=== PATIENT | male | born 1995 | race Caucasian/White ===

== ENCOUNTER 2018-11-22 22:19 | Emergency (ER) | payer MEDICAID, OTHER ==
[~2018-11-22] VITALS: Ht 188 cm; Wt 216.6 kg
--- OUTSIDE RECORDS SUMMARY | 2018-11-22 22:23 | XMS REPORT | Continuity of Care Document ---
Demographics Preferred Language Unknown Marital Status Unknown Muslim Affiliation Unknown Race Unknown Ethnic Group Unknown Author Organization Unknown Address Unknown Allergies Active Description Code Type Severity Reaction Onset Reported/Identified Relationship to Patient Clinical Status Yes Abilify Drug Allergy 09/22/2011 Medications There is no data. Problems Date Dx Coded Attending Type Code Diagnosis Diagnosed By 08/17/2010 300.00 AN ANXIETY UNSPEC 08/17/2010 311 DEPRESSIVE DISORDER NOS 08/17/2010 300.00 AN ANXIETY UNSPEC 08/17/2010 311 DEPRESSIVE DISORDER NOS 08/17/2010 300.00 AN ANXIETY UNSPEC 08/17/2010 311 DEPRESSIVE DISORDER NOS 10/20/2010 300.02 AN GEN ANXIETY 10/20/2010 300.02 AN GEN ANXIETY 10/20/2010 300.02 AN GEN ANXIETY 12/14/2010 305.20 SA CANNABIS ABUSE 12/14/2010 305.20 SA CANNABIS ABUSE 12/14/2010 305.20 SA CANNABIS ABUSE 09/22/2011 296.90 MOOD DISORDER NOS 09/22/2011 304.80 SA POLYSUB DEP 09/22/2011 313.81 CD OPPOSITIONAL DEFIANT 09/22/2011 V58.69 MEDICATION HIGH RISK 09/22/2011 296.90 MOOD DISORDER NOS 09/22/2011 304.80 SA POLYSUB DEP 09/22/2011 313.81 CD OPPOSITIONAL DEFIANT 09/22/2011 V58.69 MEDICATION HIGH RISK 09/22/2011 296.90 MOOD DISORDER NOS 09/22/2011 304.80 SA POLYSUB DEP 09/22/2011 313.81 CD OPPOSITIONAL DEFIANT 09/22/2011 V58.69 MEDICATION HIGH RISK 09/23/2011 244.9 UNSPECIFIED ACQUIRED HYPOTHYROIDISM 09/23/2011 278.01 OBESITY, MORBID (BMI >40) 09/23/2011 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 09/23/2011 535.50 GASTRITIS UNSPEC 09/23/2011 244.9 UNSPECIFIED ACQUIRED HYPOTHYROIDISM 09/23/2011 278.01 OBESITY, MORBID (BMI >40) 09/23/2011 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 Encounters ACCT No. Visit Date/Time Discharge Status Pt. Type Provider Facility Loc./Unit Complaint [id number] 07/24/2012 16:57:00 07/24/2012 23:59:59 CLS Outpatient [id number] 07/23/2012 15:12:00 07/23/2012 23:59:59 CLS Outpatient [id number] 06/22/2012 15:13:00 06/22/2012 23:59:59 CLS Outpatient
--- NOTE | 2018-11-22 22:43 | NUR ---
DOCTOR ALESSANDRO IN TO SEE THE PATIENT.
[2018-11-22] MEDS ORDERED: ONDANSETRON 4 MG/2 ML (SDV) Z0FRAN IVP ONE (22:45)
[2018-11-22] MEDS ORDERED: KETOROLAC 15 MG/ML VIAL IVP ONE (22:45)
--- NOTE | 2018-11-22 22:47 | ED Abdominal Pain ---
General Chief Complaint: Abdominal/GI Problems Stated Complaint: ABD PAIN, NAUSEA Source of Information: Patient, RN Notes Reviewed Exam Limitations: No Limitations History of Present Illness Date Seen by Provider: Nov 22, 2018 Time Seen by Provider: 22:41 Initial Comments Patient presents c/ c/o worsening lower abdominal pain and nausea x 1 day. States he thinks he is constipated and took something last PM s/ benefit. No known fever. No vomiting. Denies any symptoms Timing/Duration: 1 Day Severity/Quality: Moderate, Aching Location: Generalized Abdomen (lower) Radiation: RLQ Activities at Onset: None Modifying Factors: Improves With Resting Associated Symptoms: No Fever/Chills; Nausea/Vomiting (no vomiting) Allergies and Home Medications Allergies Coded Allergies: No Known Drug Allergies (Unverified , 11/22/18) Patient Home Medication List Home Medication List Reviewed: Yes Review of Systems Review of Systems Constitutional: see HPI; No fever Gastrointestinal: See HPI, Abdominal Pain, Constipated, Nausea Past Cbymfwx-Rtspjj-Zjeqxj Hx Patient Social History Recent Foreign Travel: No Contact w/Someone Who Travel: No Physical Exam Vital Signs Vital Signs - First Documented 11/22/18 11/23/18 22:35 02:13 Temp 97.4 Pulse 90 Resp 18 B/P (MAP) 154/85 (108) Pulse Ox 98 O2 Delivery Room Air Capillary Refill : Height/Weight/BMI Height: '" Weight: lbs. oz. kg; BMI Method: General Appearance: WD/WN, no apparent distress, obese Respiratory: no respiratory distress Cardiovascular: regular rate, rhythm Gastrointestinal: soft; No guarding, No rebound; tenderness (primarily RLQ) Rectal: deferred Neurologic/Psychiatric: no motor/sensory deficits, alert, oriented x 3, depressed affect Skin: warm/dry Progress/Results/Core Measures Results/Orders Lab Results Laboratory Tests Test 11/22/18 00:05 11/22/18 23:45 Range/Units Urine Color YELLOW Urine Clarity CLEAR Urine pH 6.0 5-9 Urine Specific [place] >=1.030 1.016-1.022 Urine Protein 1+ H NEGATIVE Urine Glucose (UA) TRACE H NEGATIVE Urine Ketones NEGATIVE NEGATIVE Urine Nitrite NEGATIVE NEGATIVE Urine Bilirubin NEGATIVE NEGATIVE Urine Urobilinogen 0.2 NORMAL MG/DL Urine Leukocyte Esterase NEGATIVE NEGATIVE Urine RBC (Auto) NEGATIVE NEGATIVE Urine RBC NONE /HPF Urine WBC 2-5 /HPF Urine Squamous Epithelial Cells 2-5 /HPF Urine Crystals NONE /LPF Urine Amorphous Sediment MOD RONALD URATES H /LPF Urine Bacteria NEGATIVE /HPF Urine Casts NONE /LPF Urine Mucus LARGE H /LPF Urine Culture Indicated NO White Blood Count 15.1 H 4.3-11.0 10^3/uL Red Blood Count 4.78 4.35-5.85 10^6/uL Hemoglobin 13.1 L 13.3-17.7 G/DL Hematocrit 41 40-54 % Mean Corpuscular Volume 86 80-99 FL Mean Corpuscular Hemoglobin 27 25-34 PG Mean Corpuscular Hemoglobin Concent 32 32-36 G/DL Red Cell Distribution Width 14.2 10.0-14.5 % Platelet Count 294 130-400 10^3/uL Mean Platelet Volume 11.7 H 7.4-10.4 FL Neutrophils (%) (Auto) 73 42-75 % Lymphocytes (%) (Auto) 15 12-44 % Monocytes (%) (Auto) 10 0-12 % Eosinophils (%) (Auto) 1 0-10 % Basophils (%) (Auto) 1 0-10 % Neutrophils # (Auto) 11.1 H 1.8-7.8 X 10^3 Lymphocytes # (Auto) 2.2 1.0-4.0 X 10^3 Monocytes # (Auto) 1.5 H 0.0-1.0 X 10^3 Eosinophils # (Auto) 0.2 0.0-0.3 10^3/uL Basophils # (Auto) 0.1 0.0-0.1 10^3/uL Sodium Level 145 135-145 MMOL/L Potassium Level 3.8 3.6-5.0 MMOL/L Chloride Level 109 H 98-107 MMOL/L Carbon Dioxide Level 19 L 21-32 MMOL/L Anion Gap 17 H 5-14 MMOL/L Blood Urea Nitrogen 6 L 7-18 MG/DL Creatinine 0.71 0.60-1.30 MG/DL Estimat Glomerular Filtration Rate > 60 BUN/Creatinine Ratio 8 Glucose Level 115 H 70-105 MG/DL Calcium Level 9.5 8.5-10.1 MG/DL Corrected Calcium 9.4 8.5-10.1 MG/DL Total Bilirubin 0.4 0.1-1.0 MG/DL Aspartate Amino Transf (AST/SGOT) 21 5-34 U/L Alanine Aminotransferase (ALT/SGPT) 37 0-55 U/L Alkaline Phosphatase 111 40-136 U/L Total Protein 7.3 6.4-8.2 GM/DL Albumin 4.1 3.2-4.5 GM/DL My Orders Orders - JUAN CARLOS FRANCOIS DO Cbc With Automated Diff (11/22/18 22:44) Comprehensive Metabolic Panel (11/22/18 22:44) Ed Iv/Invasive Line Start (11/22/18 22:44) Ketorolac Injection (Toradol Injection) (11/22/18 22:45) Ondansetron Injection (Zofran Injectio (11/22/18 22:45) Ua Culture If Indicated (11/22/18 22:49) Ketorolac Injection (Toradol Injection) (11/22/18 23:11) Ceftriaxone For Im Use (Rocephin For Im (11/23/18 00:35) Ns Iv 1000 Ml (Sodium Chloride 0.9%) (11/23/18 00:45) Abdomen Flat & Upright/Decub (11/23/18 00:42) Ceftriaxone For Iv Use (Rocephin For I (11/23/18 01:00) Dexamethasone Injection (Decadron Inject (11/23/18 01:00) Azithromycin Tablet (Zithromax Tablet) (11/23/18 01:00) Fentanyl Injection (Sublimaze Injection (11/23/18 01:00) Magnesium Citrate Oral Soln (Citrate Of (11/23/18 02:00) Medications Given in ED Current Medications Medications Dose Ordered Sig/Tyler Route Start Time Stop Time Status Last Admin Dose Admin Azithromycin 1,000 mg ONCE ONCE PO 11/23/18 01:00 11/23/18 01:01 DC 11/23/18 01:19 1,000 MG Ceftriaxone Sodium 250 mg STK-MED ONCE .ROUTE 11/23/18 00:35 11/23/18 00:39 DC 11/23/18 00:53 250 MG Dexamethasone Sodium Phosphate 10 mg ONCE ONCE IV 11/23/18 01:00 11/23/18 01:01 DC 11/23/18 01:19 10 MG Fentanyl Citrate 50 mcg ONCE ONCE IVP 11/23/18 01:00 11/23/18 01:01 DC 11/23/18 01:19 50 MCG Ketorolac Tromethamine 15 mg ONCE ONCE IVP 11/22/18 22:45 11/22/18 22:47 DC 11/22/18 23:20 15 MG Magnesium Citrate 300 ml ONCE ONCE PO 11/23/18 02:00 11/23/18 02:01 DC 11/23/18 02:10 300 ML Ondansetron HCl 4 mg ONCE ONCE IVP 11/22/18 22:45 11/22/18 22:47 DC 11/22/18 23:21 4 MG Sodium Chloride 1,000 ml ONCE ONCE IV 11/23/18 00:45 11/23/18 00:46 DC 11/23/18 00:54 1,000 ML Vital Signs/I&O 11/22/18 11/23/18 22:35 02:13 Temp 97.4 97.4 Pulse 90 90 Resp 18 18 B/P (MAP) 154/85 (108) 154/85 (108) Pulse Ox 98 O2 Delivery Room Air Progress Progress Note : Progress Note Attempted to obtain a CT of the patient's abdomen/pelvis but he is too heavy for our CT table. Checked c/ [facility] in [place] and their table weight limit is even less than ours. Discussed options of transferring him to either [place], or and we decided to take a weight and see position. He still feels if he can get cleaned out he will be good to go. Will send him home some Mag citrate. Discussed returning if his symptoms worsened. Departure Impression Primary Impression: Abdominal pain Additional Impressions: Dehydration Ileus/constipation Disposition: 01 HOME, SELF-CARE Condition: Improved Departure-Patient Inst. Decision time for Depature: 02:01 Referrals: AMBROSE TORREZ MD (PCP) Primary Care Physician Patient Instructions: Dehydration, Adult (DC), Constipation, Adult (DC), Acute Abdomen (Belly Pain) Add. Discharge Instructions: All discharge instructions reviewed with patient and/or family. Voiced understanding. RETURN IF YOUR PAIN RECURS, &/OR WORSENS, ESPECIALLY IF ASSOCIATED WITH FEVER &/OR NAUSEA AND VOMITING. WILL MOST LIKELY NEED TO TRANSFER YOU TO EITHER [place], OR IF THAT IS THE CASE IN [place] OF THE [place] SCAN ISSUES. NEED TO PUSH CLEAR LIQUIDS AND STAY HYDRATED. JUAN CARLOS FRANCOIS DO Nov 22, 2018 22:47
[2018-11-22] MEDS ORDERED: KETOROLAC 30 MG/ML VIAL ONE (23:11)
[2018-11-22 23:52] LABS: BASOPHILS % (AUTO) 1 % (0-10); EOSINOPHILS % (AUTO) 1 % (0-10); HEMATOCRIT 41 % (40-54); HEMOGLOBIN 13.1 G/DL (13.3-17.7); LYMPHOCYTES % (AUTO) 15 % (12-44); MEAN CORPUSCULAR HEMOGLOBIN 27 PG (25-34); MEAN CORPUSCULAR HGB CONC 32 G/DL (32-36); MEAN CORPUSCULAR VOLUME 86 FL (80-99); MEAN PLATELET VOLUME 11.7 FL (7.4-10.4); MONOCYTES % (AUTO) 10 % (0-12); PLATELET COUNT 294 10^3/uL (130-400); RED CELL DISTRIBUTION WIDTH 14.2 % (10.0-14.5); WHITE BLOOD COUNT 15.1 10^3/uL (4.3-11.0)
--- NOTE | 2018-11-22 23:52 | NUR ---
PT. UP TO THE BATHROOM AT THIS TIME.
[2018-11-22 23:53] LABS: BASOPHILS # (AUTO) 0.1 10^3/uL (0.0-0.1); EOSINOPHILS # (AUTO) 0.2 10^3/uL (0.0-0.3); LYMPHOCYTES # (AUTO) 2.2 X 10^3 (1.0-4.0); MONOCYTES # (AUTO) 1.5 X 10^3 (0.0-1.0); NEUTROPHILS # (AUTO) 11.1 X 10^3 (1.8-7.8); NEUTROPHILS % (AUTO) 73 % (42-75)
--- NOTE | 2018-11-22 23:56 | NUR ---
PT. STATED HE HAD A BM
[2018-11-23 00:15] LABS: ALANINE AMINOTRANSFERASE 37 U/L (0-55); ALKALINE PHOSPHATASE 111 U/L (40-136); BILIRUBIN,TOTAL 0.4 MG/DL (0.1-1.0); BUN/CREATININE RATIO 8; CALCIUM 9.5 MG/DL (8.5-10.1); CARBON DIOXIDE 19 MMOL/L (21-32); CHLORIDE 109 MMOL/L (98-107); CREATININE SERUM 0.71 MG/DL (0.60-1.30); GFR ESTIMATED > 60; GLUCOSE 115 MG/DL (70-105); POTASSIUM 3.8 MMOL/L (3.6-5.0); SODIUM 145 MMOL/L (135-145); TOTAL PROTEIN 7.3 GM/DL (6.4-8.2)
[2018-11-23 00:16] LABS: ALBUMIN 4.1 GM/DL (3.2-4.5)
[2018-11-23 00:16] LABS: CLARITY,URINE CLEAR; COLOR,URINE YELLOW; PROTEIN,URINE 1+ (NEGATIVE)
[2018-11-23 00:17] LABS: BACTERIA,URINE NEGATIVE /HPF; BILIRUBIN,URINE NEGATIVE (NEGATIVE); GLUCOSE, URINE (UA) TRACE (NEGATIVE); KETONES,URINE NEGATIVE (NEGATIVE); LEUKOCYTE ESTERASE ,URINE NEGATIVE (NEGATIVE); NITRITE,URINE NEGATIVE (NEGATIVE); UROBILINOGEN,URINE 0.2 MG/DL (NORMAL)
[2018-11-23 00:18] LABS: AMORPHOUS SEDIMENT,UR MOD AMOR URATES /LPF
[2018-11-23] MEDS ORDERED: cefTRIAXone FOR IV USE 250 MG in SYRINGE-IVPB 1 SYRINGE IV STA (00:24)
--- NOTE | 2018-11-23 00:27 | NUR ---
DOCTOR IN WITH THE PATIENT.
[2018-11-23] MEDS ORDERED: fentaNYL INJECTION 100 MCG/2 ML AMP IVP ONE ×2 (00:30→01:00)
[2018-11-23] MEDS ORDERED: DEXAMETHASONE 10 MG/ML (DECADRON) 1 ML VIAL IV ONE ×2 (00:30→01:00)
[2018-11-23] MEDS ORDERED: AZITHROMYCIN 250 MG TAB (ZITHROMAX) PO ONE ×2 (00:30→01:00)
[2018-11-23] MEDS ORDERED: cefTRIAXone 250 MG/ML vial (IM ONLY) ONE (00:35)
[2018-11-23] MEDS ORDERED: NS 1000 ML IV BAG IV ONE (00:45)
[2018-11-23] MEDS ORDERED: cefTRIAXone FOR IV USE 250 MG in SYRINGE-IVPB 1 SYRINGE IV SCH (01:00)
[2018-11-23] MEDS ORDERED: MAGNESIUM CITRATE 300 ML BTL PO ONE (02:00)
[2018-11-23 02:13] VITALS: BP 154/85
--- NOTE | 2018-11-23 06:51 | Diagnostic Imaging Report ---
INDICATION: Abdominal pain with nausea. Constipation. TECHNIQUE: Supine and upright frontal views of the abdomen. COMPARISON: None FINDINGS: There is gas seen in the colon and small bowel. No distended loops of small bowel are seen. The overall stool burden appears low. No acute osseous abnormality is seen. IMPRESSION: No radiographic findings of bowel obstruction or large collection of free air. Dictated by: Dictated on workstation # [id number]
== END 2018-11-23 02:14 | disposition home or self-care (01) ==
LOC: ER FS 22:19
DX: K59.00 Constipation, unspecified (principal); K56.7 Ileus, unspecified; E86.0 Dehydration
CPT/HCPCS: 36415; 74019; 80053; 81000; 85025

== ENCOUNTER 2020-05-17 23:33 | Emergency (ER) | payer MEDICAID ==
[~2020-05-17] VITALS: Ht 188 cm; Wt 91.3 kg
[2020-05-17] MEDS ORDERED: NS IV 1000 ML 1,000 ML IV STA (23:43)
[2020-05-17] MEDS ORDERED: KETOROLAC 60 MG/2 ML VIAL IV ONE (23:45)
[2020-05-17] MEDS ORDERED: ONDANSETRON 4 MG/2 ML (SDV) Z0FRAN IVP ONE (23:45)
--- NOTE | 2020-05-17 23:46 | ED Abdominal Pain ---
General Chief Complaint: Abdominal/GI Problems Stated Complaint: ABD PAIN Source of Information: Patient, Old Records, RN Notes Reviewed Exam Limitations: No Limitations History of Present Illness Date Seen by Provider: May 17, 2020 Time Seen by Provider: 23:40 Initial Comments This patient is a 24-year-old male that presents to the emergency department complaining of abdominal pain. Patient states he had gastric bypass surgery 1 year ago said issues with his abdomen from time to time. Patient states she's been hurt in his abdomen for the past couple days. Patient states he did have a bowel movement earlier today. Denies nausea vomiting denies diarrhea. Patient states he is still passing little bit of gas. We'll do medical evaluation treatment is needed Timing/Duration: 2-3 Days Severity/Quality: Moderate Location: Generalized Abdomen Radiation: No Radiation Activities at Onset: None Allergies and Home Medications Allergies Coded Allergies: aripiprazole (Verified Allergy, Unknown, 03/29/20) Patient Home Medication List Home Medication List Reviewed: Yes Review of Systems Review of Systems Constitutional: No no symptoms reported, No see HPI, No chills, No diaphoresis, No dizziness, No fever, No malaise, No weakness, No weight gain, No weight loss, No other EENTM: No No Symptoms Reported, No See HPI, No Blurred Vision, No Double Visi on, No Eye Pain, No Eye Tearing, No Ear Drainage, No Ear Pain, No Mouth Pain, No Mouth Swelling, No Nose Congestion, No Nose Pain, No Throat Pain, No Throat Swelling, No Other Respiratory: Denies No Symptoms Reported, Denies See HPI, Denies Cough, Denies Orthopnea, Denies Shortness of Air, Denies SOA With Exertion, Denies SOA at Rest, Denies Stridor, Denies Wheezing, Denies Other Cardiovascular: Denies No Symptoms Reported, Denies See HPI, Denies Chest Pain, Denies Edema, Denies Irregular Heart Rate, Denies Lightheadedness, Denies Palpitations, Denies Syncope, Denies Other Gastrointestinal: Denies No Symptoms Reported; See HPI; Denies Abdomen Distended; Abdominal Pain; Denies Blood Streaked Stools, Denies Constipated, Denies Diarrhea, Denies Difficulty Swallowing, Denies Nausea, Denies Poor Appetite, Denies Poor Fluid Intake, Denies Rectal Bleeding, Denies Vomiting, Denies Other Genitourinary: Denies No Symptoms Reported, Denies See HPI, Denies Burning, Denies Discharge, Denies Drainage, Denies Frequency, Denies Flank Pain, Denies Hematuria, Denies Incontinence, Denies Pain, Denies Urgency, Denies Other Musculoskeletal: No no symptoms reported, No see HPI, No back pain, No gout, No joint pain, No joint swelling, No muscle pain, No muscle stiffness, No muscle cramps, No muscle twitching, No muscle weakness, No neck pain, No other Skin: No no symptoms reported, No see HPI, No change in color, No change in hair/nails, No dryness, No hx of skin cancer, No lesions, No lumps, No pruritus, No rash, No other Psychiatric/Neurological: Denies No Symptoms Reported, Denies See HPI, Denies Anxiety, Denies Depressed, Denies Emotional Problems, Denies Headache, Denies Numbness, Denies Paresthesia, Denies Pre-Existing Deficit, Denies Seizure, Denies Tingling, Denies Tremors, Denies Weakness, Denies Other All Other Systems Reviewed Negative Unless Noted: Yes Past Gftonsj-Szbtyz-Skhtto Hx Patient Social History Recent Foreign Travel: No Contact w/Someone Who Travel: No Recent Hopitalizations: No Past Medical History Surgeries: Yes (gastric bypass) Respiratory: No Cardiac: No Neurological: No Genitourinary: No Gastrointestinal: No Musculoskeletal: No Endocrine: No HEENT: No Cancer: No Psychosocial: Yes Anxiety, Depression Integumentary: No Blood Disorders: No Physical Exam Vital Signs Vital Signs - First Documented 05/17/20 23:46 Temp 36.5 Pulse 100 Resp 24 B/P (MAP) 123/86 (98) Pulse Ox 100 O2 Delivery Room Air Capillary Refill : Height/Weight/BMI Height: 6'2.00" Weight: 477lbs. 8.0oz. 216.878138qa; 28.00 BMI Method:Actual General Appearance: WD/WN, no apparent distress Respiratory: chest non-tender, lungs clear, normal breath sounds, no respiratory distress, no accessory muscle use Cardiovascular: normal peripheral pulses, regular rate, rhythm, no edema, no gallop, no JVD, no murmur Gastrointestinal: normal bowel sounds, non tender, soft, no organomegaly, no pulsatile mass Skin: normal color, warm/dry Procedures/Interventions Suture Size: 4-0 Progress/Results/Core Measures Results/Orders Lab Results Laboratory Tests Test 05/18/20 00:05 Range/Units White Blood Count 12.7 H 4.3-11.0 10^3/uL Red Blood Count 4.99 4.35-5.85 10^6/uL Hemoglobin 15.1 13.3-17.7 G/DL Hematocrit 43 40-54 % Mean Corpuscular Volume 86 80-99 FL Mean Corpuscular Hemoglobin 30 25-34 PG Mean Corpuscular Hemoglobin Concent 35 32-36 G/DL Red Cell Distribution Width 13.8 10.0-14.5 % Platelet Count 292 130-400 10^3/uL Mean Platelet Volume 12.0 H 7.4-10.4 FL Immature Granulocyte % (Auto) 0 % Neutrophils (%) (Auto) 60 42-75 % Lymphocytes (%) (Auto) 28 12-44 % Monocytes (%) (Auto) 11 0-12 % Eosinophils (%) (Auto) 1 0-10 % Basophils (%) (Auto) 0 0-10 % Neutrophils # (Auto) 7.6 1.8-7.8 X 10^3 Lymphocytes # (Auto) 3.6 1.0-4.0 X 10^3 Monocytes # (Auto) 1.3 H 0.0-1.0 X 10^3 Eosinophils # (Auto) 0.2 0.0-0.3 10^3/uL Basophils # (Auto) 0.1 0.0-0.1 10^3/uL Immature Granulocyte # (Auto) 0.0 0.0-0.1 10^3/uL Sodium Level 143 135-145 MMOL/L Potassium Level 3.4 L 3.6-5.0 MMOL/L Chloride Level 104 98-107 MMOL/L Carbon Dioxide Level 20 L 21-32 MMOL/L Anion Gap 19 H 5-14 MMOL/L Blood Urea Nitrogen 20 H 7-18 MG/DL Creatinine 0.77 0.60-1.30 MG/DL Estimat Glomerular Filtration Rate > 60 BUN/Creatinine Ratio 26 Glucose Level 67 L 70-105 MG/DL Calcium Level 10.0 8.5-10.1 MG/DL Corrected Calcium 8.5-10.1 MG/DL Total Bilirubin 1.2 H 0.1-1.0 MG/DL Aspartate Amino Transf (AST/SGOT) 16 5-34 U/L Alanine Aminotransferase (ALT/SGPT) 23 0-55 U/L Alkaline Phosphatase 127 40-136 U/L Total Protein 7.5 6.4-8.2 GM/DL Albumin 4.7 H 3.2-4.5 GM/DL Lipase 29 8-78 U/L Serum Alcohol < 10 <10 MG/DL My Orders Orders - EMANUEL FLYNN MD Ct Abd/Pelvis Wo(Kidney Stone) (05/17/20 23:43) Ed Iv/Invasive Line Start (05/17/20 23:43) Alcohol (05/17/20 23:43) Cbc With Automated Diff (05/17/20 23:43) Comprehensive Metabolic Panel (05/17/20 23:43) Drug Screen Stat (Urine) (05/17/20 23:43) Urinalysis (05/17/20 23:43) Lipase (05/17/20 23:43) Ns Iv 1000 Ml (Sodium Chloride 0.9%) (05/17/20 23:43) Ketorolac Injection (Toradol Injection) (05/17/20 23:45) Ondansetron Injection (Zofran Injectio (05/17/20 23:45) Lactic Acid Analyzer (05/18/20 01:30) Medications Given in ED Current Medications Medications Dose Ordered Sig/Tyler Route Start Time Stop Time Status Last Admin Dose Admin Ketorolac Tromethamine 15 mg ONCE ONCE IV 05/17/20 23:45 05/17/20 23:46 DC 05/18/20 00:00 15 MG Ondansetron HCl 4 mg ONCE ONCE IVP 05/17/20 23:45 05/17/20 23:46 DC 05/18/20 00:00 4 MG Vital Signs/I&O 05/17/20 23:46 Temp 36.5 Pulse 100 Resp 24 B/P (MAP) 123/86 (98) Pulse Ox 100 O2 Delivery Room Air Progress Progress Note : Time: 01:32 Progress Note This patient is a 24-year-old male presented with a small bowel obstruction with an nurse obgyn hernia. History of gastric bypass. Patient be transferred to [facility]. Dr. Willingham Departure Impression Primary Impression: Small bowel obstruction Additional Impression: Intestinal hernia Disposition: 02 XFER SHT-TRM HOSP Condition: Stable Transfer Transfer Reason: Patient preference Time Spoke to Accepting Phy: 01:[address] Willingham transferred into the ER Transfer Time: 01:33 Transfer Facility: [facility]. Method of Transfer: EMS Departure-Patient Inst. Referrals: AMBROSE TORREZ MD (PCP/Family) Primary Care Physician EMANUEL FLYNN MD May 17, 2020 23:46
[2020-05-18 00:08] LABS: HEMATOCRIT 43 % (40-54); HEMOGLOBIN 15.1 G/DL (13.3-17.7); MEAN CORPUSCULAR HEMOGLOBIN 30 PG (25-34); MEAN CORPUSCULAR HGB CONC 35 G/DL (32-36); MEAN CORPUSCULAR VOLUME 86 FL (80-99); PLATELET COUNT 292 10^3/uL (130-400); WHITE BLOOD COUNT 12.7 10^3/uL (4.3-11.0)
[2020-05-18 00:09] LABS: BASOPHILS # (AUTO) 0.1 10^3/uL (0.0-0.1); BASOPHILS % (AUTO) 0 % (0-10); EOSINOPHILS # (AUTO) 0.2 10^3/uL (0.0-0.3); EOSINOPHILS % (AUTO) 1 % (0-10); LYMPHOCYTES # (AUTO) 3.6 X 10^3 (1.0-4.0); LYMPHOCYTES % (AUTO) 28 % (12-44); MONOCYTES # (AUTO) 1.3 X 10^3 (0.0-1.0); MONOCYTES % (AUTO) 11 % (0-12); NEUTROPHILS # (AUTO) 7.6 X 10^3 (1.8-7.8); NEUTROPHILS % (AUTO) 60 % (42-75)
[2020-05-18 00:27] LABS: ALKALINE PHOSPHATASE 127 U/L (40-136); BILIRUBIN,TOTAL 1.2 MG/DL (0.1-1.0); BUN/CREATININE RATIO 26; CARBON DIOXIDE 20 MMOL/L (21-32); CHLORIDE 104 MMOL/L (98-107); CREATININE SERUM 0.77 MG/DL (0.60-1.30); GFR ESTIMATED > 60; GLUCOSE 67 MG/DL (70-105); POTASSIUM 3.4 MMOL/L (3.6-5.0); SODIUM 143 MMOL/L (135-145)
[2020-05-18 00:28] LABS: ALANINE AMINOTRANSFERASE 23 U/L (0-55); ALBUMIN 4.7 GM/DL (3.2-4.5); LIPASE 29 U/L (8-78); TOTAL PROTEIN 7.5 GM/DL (6.4-8.2)
[2020-05-18 02:00] VITALS: BP 121/68
[2020-05-18 04:00] VITALS: BP 115/62
[2020-05-18 05:00] VITALS: BP 96/74
[2020-05-18 07:52] VITALS: BP 123/75
--- NOTE | 2020-05-18 08:12 | Diagnostic Imaging Report ---
PROCEDURE: CT urinary tract, rule out kidney stone. TECHNIQUE: Multiple contiguous axial images were obtained through the abdomen and pelvis without the use of intravenous contrast. Auto Exposure Controls were utilized during the CT exam to meet ALARA standards for radiation dose reduction. INDICATION: Abdominal pain. The lung bases are clear. The liver and gallbladder are unremarkable. No biliary duct dilatation is seen. Pancreas and spleen are unremarkable. No adrenal mass is detected. There is a 6 to 7 mm calculus in the right mid kidney, nonobstructing. No hydronephrosis is identified. Aorta is non-aneurysmal. There are postsurgical changes from gastric bypass surgery. There are some distended bowel loops which appear to be fluid-filled in the upper abdomen. There is a somewhat swirling pattern to upper and mid abdominal vasculature and bowel loops. These findings can be seen in closed loop obstructions such as internal hernias. No free fluid or free air is seen. No fluid collection is identified. Bladder is decompressed. Bony structures are nonacute. IMPRESSION: 1. 6 to 7 mm nonobstructing right renal calculus. 2. Postop changes of gastric bypass surgery. There are some distended fluid-filled bowel loops in the upper abdomen with somewhat swirling pattern in the upper abdomen, suspicious for closed loop obstruction. No free air or abscess formation is identified. Dictated by: Dictated on workstation # [id number]
== END 2020-05-18 07:56 | disposition short-term general hospital (02) ==
LOC: EDUNIT# 23:33 → ER FS 23:34
DX: K56.609 Unspecified intestinal obstruction, unspecified as to partial versus complete obstruction (principal); K45.8 Other specified abdominal hernia without obstruction or gangrene; Z88.8 Allergy status to other drugs, medicaments and biological substances
CPT/HCPCS: 36415; 74176; 80053; 80320; 83605; 83690; 85025

== ENCOUNTER 2020-06-23 22:57 | Emergency (ER) | payer MEDICAID ==
[~2020-06-23] VITALS: Ht 187.9 cm; Wt 92.9 kg
--- NOTE | 2020-06-23 23:10 | ED Psychosocial ---
General Stated Complaint: SUICIDAL IDEATION Source: patient Exam Limitations: no limitations History of Present Illness Date Seen by Provider: Jun 23, 2020 Time Seen by Provider: 23:58 Initial Comments The patient is a 24-year-old male brought in by police for evaluation of depression and suicidal ideation. Apparently the patient was in an argument with someone and barricaded himself in his house and was threatening to kill himself. He has some superficial abrasions which were self-inflicted to the left volar wrist. They're superficial and there is no bleeding upon arrival. The patient is alert and oriented 4, calm, and appears to be no distress. He is unsure if the date of his last tetanus shot so will be given to him today. He is denying any suicidal ideation at this time. Timing/Duration: just prior to arrival Severity: moderate Associated Symptoms: denies symptoms Allergies and Home Medications Allergies Coded Allergies: aripiprazole (Verified Allergy, Unknown, 03/29/20) Patient Home Medication List Home Medication List Reviewed: Yes Review of Systems Constitutional: no symptoms reported EENTM: no symptoms reported Respiratory: no symptoms reported Cardiovascular: no symptoms reported Gastrointestinal: no symptoms reported Genitourinary: no symptoms reported Musculoskeletal: no symptoms reported Skin: no symptoms reported Psychiatric/Neurological: Depressed, Other (suicidal ideation) All Other Systems Reviewed Negative Unless Noted: Yes Past Tquqect-Pcdmky-Hjbwgb Hx Past Med/Social Hx: Reviewed Nursing Past Med/Soc Hx Patient Social History Recent Hopitalizations: No Seasonal Allergies Seasonal Allergies: No Past Medical History Surgeries: Yes (gastric bypass) Respiratory: No Cardiac: No Neurological: No Genitourinary: No Gastrointestinal: No Musculoskeletal: No Endocrine: No HEENT: No Cancer: No Psychosocial: Yes Anxiety, Depression Integumentary: No Blood Disorders: No Physical Exam Vital Signs - First Documented 06/23/20 22:58 Temp 36.7 Pulse 99 Resp 20 B/P (MAP) 157/94 (115) Pulse Ox 95 O2 Delivery Room Air Capillary Refill : Height, Weight, BMI Height: 6'2.00" Weight: 477lbs. 8.0oz. [id number]; 25.00 BMI Method:Actual General Appearance: WD/WN, no apparent distress HEENT: PERRL/EOMI, normal ENT inspection Neck: non-tender, full range of motion, supple Respiratory: lungs clear, normal breath sounds, no respiratory distress, no accessory muscle use Cardiovascular: regular rate, rhythm, no edema, no JVD Gastrointestinal: normal bowel sounds, non tender, soft, no pulsatile mass Extremities: non-tender, no pedal edema, no calf tenderness, normal capillary refill, other (superficial abrasions to left wrist, minor hematoma/ecchymosis, no bleeding) Neurologic/Psychiatric: butt trimmer II-XII nml as tested, no motor/sensory deficits, alert, oriented x 3, depressed affect, other (flat affect) Appearance/Memory: appropriate appearance, appropriate insight Behavior/Eye Contact: cooperative, good eye contact, normal speech Thoughts/Hallucinations: normal thought pattern, no apparent hallucination Skin: normal color, warm/dry Procedures/Interventions Suture Size: 4-0 Progress/Results/Core Measures Results/Orders Lab Results Laboratory Tests Test 06/23/20 23:05 06/23/20 23:14 Range/Units Urine Color YELLOW Urine Clarity CLOUDY Urine pH 8.0 5-9 Urine Specific [place] 1.020 1.016-1.022 Urine Protein NEGATIVE NEGATIVE Urine Glucose (UA) NEGATIVE NEGATIVE Urine Ketones NEGATIVE NEGATIVE Urine Nitrite NEGATIVE NEGATIVE Urine Bilirubin NEGATIVE NEGATIVE Urine Urobilinogen 0.2 < = 1.0 MG/DL Urine Leukocyte Esterase NEGATIVE NEGATIVE Urine RBC (Auto) NEGATIVE NEGATIVE Urine RBC NONE /HPF Urine WBC NONE /HPF Urine Squamous Epithelial Cells 0-2 /HPF Urine Crystals NONE /LPF Urine Amorphous Sediment MOD RONALD PHOSPHATE H /LPF Urine Bacteria TRACE /HPF Urine Casts NONE /LPF Urine Mucus NEGATIVE /LPF Urine Culture Indicated NO Urine Opiates Screen NEGATIVE NEGATIVE Urine Oxycodone Screen NEGATIVE NEGATIVE Urine Methadone Screen NEGATIVE NEGATIVE Urine Propoxyphene Screen NEGATIVE NEGATIVE Urine Barbiturates Screen NEGATIVE NEGATIVE Ur Tricyclic Antidepressants Screen NEGATIVE NEGATIVE Urine Phencyclidine Screen NEGATIVE NEGATIVE Urine Amphetamines Screen POSITIVE H NEGATIVE Urine Methamphetamines Screen POSITIVE H NEGATIVE Urine Benzodiazepines Screen NEGATIVE NEGATIVE Urine Cocaine Screen NEGATIVE NEGATIVE Urine Cannabinoids Screen NEGATIVE NEGATIVE White Blood Count 7.8 4.3-11.0 10^3/uL Red Blood Count 4.39 4.35-5.85 10^6/uL Hemoglobin 13.3 13.3-17.7 G/DL Hematocrit 40 40-54 % Mean Corpuscular Volume 90 80-99 FL Mean Corpuscular Hemoglobin 30 25-34 PG Mean Corpuscular Hemoglobin Concent 34 32-36 G/DL Red Cell Distribution Width 12.7 10.0-14.5 % Platelet Count 213 130-400 10^3/uL Mean Platelet Volume 11.6 H 7.4-10.4 FL Immature Granulocyte % (Auto) 0 % Neutrophils (%) (Auto) 57 42-75 % Lymphocytes (%) (Auto) 32 12-44 % Monocytes (%) (Auto) 7 0-12 % Eosinophils (%) (Auto) 3 0-10 % Basophils (%) (Auto) 1 0-10 % Neutrophils # (Auto) 4.4 1.8-7.8 X 10^3 Lymphocytes # (Auto) 2.5 1.0-4.0 X 10^3 Monocytes # (Auto) 0.6 0.0-1.0 X 10^3 Eosinophils # (Auto) 0.3 0.0-0.3 10^3/uL Basophils # (Auto) 0.0 0.0-0.1 10^3/uL Immature Granulocyte # (Auto) 0.0 0.0-0.1 10^3/uL Sodium Level 141 135-145 MMOL/L Potassium Level 3.9 3.6-5.0 MMOL/L Chloride Level 107 98-107 MMOL/L Carbon Dioxide Level 24 21-32 MMOL/L Anion Gap 10 5-14 MMOL/L Blood Urea Nitrogen 13 7-18 MG/DL Creatinine 0.73 0.60-1.30 MG/DL Estimat Glomerular Filtration Rate > 60 BUN/Creatinine Ratio 18 Glucose Level 83 70-105 MG/DL Calcium Level 9.4 8.5-10.1 MG/DL Corrected Calcium 9.2 8.5-10.1 MG/DL Total Bilirubin 0.8 0.1-1.0 MG/DL Aspartate Amino Transf (AST/SGOT) 19 5-34 U/L Alanine Aminotransferase (ALT/SGPT) 26 0-55 U/L Alkaline Phosphatase 115 40-136 U/L Total Protein 6.6 6.4-8.2 GM/DL Albumin 4.2 3.2-4.5 GM/DL Salicylates Level < 0.3 L 5.0-20.0 MG/DL Acetaminophen Level < 10 L 10-30 UG/ML Serum Alcohol < 10 <10 MG/DL My Orders Orders - APPLE,SRUTHI B DO Ua Culture If Indicated (06/23/20 23:04) Cbc With Automated Diff (06/23/20 23:04) Comprehensive Metabolic Panel (06/23/20 23:04) Alcohol (06/23/20 23:04) Drug Screen Stat (Urine) (06/23/20 23:04) Acetaminophen (06/23/20 23:04) Salicylate (06/23/20 23:04) Ekg Tracing (06/23/20 23:04) Bh Status Checks/Observation Q15M (06/23/20 23:04) Dipht,Pertuss(Acell),Tet Adult (Boostrix (06/23/20 23:15) Medications Given in ED Current Medications Medications Dose Ordered Sig/Tyler Route Start Time Stop Time Status Last Admin Dose Admin Diphtheria/ Tetanus/Acell Pertussis 0.5 ml ONCE ONCE IM 06/23/20 23:15 06/23/20 23:17 DC 06/24/20 00:02 0.5 ML Vital Signs/I&O 06/23/20 22:58 Temp 36.7 Pulse 99 Resp 20 B/P (MAP) 157/94 (115) Pulse Ox 95 O2 Delivery Room Air Progress Progress Note : Progress Note @0300 - the patient was evaluated by the mental health product manager e commerce who has determined that the patient is safe for discharge home at this time. He has sign ed a mental health/suicide action plan. The patient agrees with the plan to go home. Advised the patient to return to the emergency Department immediately for new or worsening symptoms. The patient expresses verbal understanding and agreement the plan and is stable for discharge. Comment @2319 - Normal sinus rhythm, rate of 83, normal axis, no acute ischemic findings noted, no STEMI, reviewed and interpreted by myself Departure Impression Primary Impression: Methamphetamine abuse Additional Impression: Non-suicidal depressed mood Disposition: 01 HOME, SELF-CARE Condition: Stable Departure-Patient Inst. Decision time for Depature: 03:02 Referrals: AMBROSE TORREZ MD (PCP/Family) Primary Care Physician Patient Instructions: Depression, Adult (DC), OUTPT MENTAL HEALTH SERVICES, OUTPT SUBSTANCE ABUSE RESOURCE Add. Discharge Instructions: Follow your depression action plan. Return to the emergency Department immediately for new or worsening symptoms. Follow-up with your doctor in the next 1-2 days. Do not abuse illegal drugs. SRUTHI CHIU DO Jun 23, 2020 23:10
[2020-06-23] MEDS ORDERED: TETANUS,DIPTH,PERTUSS P/F (BOOSTRIX) 0.5 ML VIAL IM ONE (23:15)
[2020-06-23 23:22] LABS: HEMATOCRIT 40 % (40-54); HEMOGLOBIN 13.3 G/DL (13.3-17.7); MEAN CORPUSCULAR HEMOGLOBIN 30 PG (25-34); MEAN CORPUSCULAR HGB CONC 34 G/DL (32-36); MEAN CORPUSCULAR VOLUME 90 FL (80-99); WHITE BLOOD COUNT 7.8 10^3/uL (4.3-11.0)
[2020-06-23 23:23] LABS: BASOPHILS % (AUTO) 1 % (0-10); EOSINOPHILS # (AUTO) 0.3 10^3/uL (0.0-0.3); EOSINOPHILS % (AUTO) 3 % (0-10); LYMPHOCYTES # (AUTO) 2.5 X 10^3 (1.0-4.0); LYMPHOCYTES % (AUTO) 32 % (12-44); MEAN PLATELET VOLUME 11.6 FL (7.4-10.4); MONOCYTES # (AUTO) 0.6 X 10^3 (0.0-1.0); MONOCYTES % (AUTO) 7 % (0-12); NEUTROPHILS # (AUTO) 4.4 X 10^3 (1.8-7.8); NEUTROPHILS % (AUTO) 57 % (42-75); PLATELET COUNT 213 10^3/uL (130-400)
[2020-06-23 23:43] LABS: ALANINE AMINOTRANSFERASE 26 U/L (0-55); ALBUMIN 4.2 GM/DL (3.2-4.5); ALKALINE PHOSPHATASE 115 U/L (40-136); BILIRUBIN,TOTAL 0.8 MG/DL (0.1-1.0); BUN/CREATININE RATIO 18; CALCIUM 9.4 MG/DL (8.5-10.1); CARBON DIOXIDE 24 MMOL/L (21-32); CHLORIDE 107 MMOL/L (98-107); CREATININE SERUM 0.73 MG/DL (0.60-1.30); GFR ESTIMATED > 60; GLUCOSE 83 MG/DL (70-105); POTASSIUM 3.9 MMOL/L (3.6-5.0); SODIUM 141 MMOL/L (135-145); TOTAL PROTEIN 6.6 GM/DL (6.4-8.2)
[2020-06-23 23:44] LABS: ACETAMINOPHEN < 10 UG/ML (10-30); SALICYLATE < 0.3 MG/DL (5.0-20.0)
[2020-06-23 23:48] LABS: BILIRUBIN,URINE NEGATIVE (NEGATIVE); CLARITY,URINE CLOUDY; COLOR,URINE YELLOW; GLUCOSE, URINE (UA) NEGATIVE (NEGATIVE); KETONES,URINE NEGATIVE (NEGATIVE); LEUKOCYTE ESTERASE ,URINE NEGATIVE (NEGATIVE); NITRITE,URINE NEGATIVE (NEGATIVE); PROTEIN,URINE NEGATIVE (NEGATIVE)
[2020-06-23 23:49] LABS: AMORPHOUS SEDIMENT,UR MOD AMOR PHOSPHATE /LPF; BACTERIA,URINE TRACE /HPF; SQUAMOUS EPITHELIAL CELL,UR 0-2 /HPF
[2020-06-23 23:55] LABS: AMPHETAMINE SCREEN, URINE POSITIVE (NEGATIVE); BARBITURATE SCREEN URINE NEGATIVE (NEGATIVE); BENZODIAZEPINES SCREEN URINE NEGATIVE (NEGATIVE); CANNABINOID SCREEN, URINE NEGATIVE (NEGATIVE); COCAINE SCREEN URINE NEGATIVE (NEGATIVE); METHADONE STAT NEGATIVE (NEGATIVE); METHAMPHETAMINE SCREEN URINE S POSITIVE (NEGATIVE); OPIATE SCREEN URINE NEGATIVE (NEGATIVE); OXYCODONE STAT NEGATIVE (NEGATIVE); PROPOXYPHENE STAT NEGATIVE (NEGATIVE); TRICYCLIC ANTIDEPRESSANTS SCRE NEGATIVE (NEGATIVE)
[2020-06-24 03:05] VITALS: BP 132/86
== END 2020-06-24 03:05 | disposition home or self-care (01) ==
LOC: EDUNIT# 22:57 → ER FS 22:59
DX: S60.212A Contusion of left wrist, initial encounter (principal); F32.9 Major depressive disorder, single episode, unspecified; F15.10 Other stimulant abuse, uncomplicated; F41.9 Anxiety disorder, unspecified; Z23 Encounter for immunization; Z98.84 Bariatric surgery status; Z88.8 Allergy status to other drugs, medicaments and biological substances; X78.9XXA Intentional self-harm by unspecified sharp object, initial encounter
CPT/HCPCS: 36415; 80053; 80306; 80320; 80329; 81000; 85025; 90715; 93005

== ENCOUNTER 2021-01-21 22:08 | Emergency (ER) | payer MEDICAID, OTHER ==
[~2021-01-21] VITALS: Ht 190.5 cm; Wt 104.4 kg
--- NOTE | 2021-01-21 22:29 | ED Psychosocial ---
General Chief Complaint: Psych/Social Disorder Stated Complaint: SUICIDAL Nursing Triage Note: PT TO ROOM [facility] WITH [facility] WITH C/O SUICIDE ATTEMPT. PER EMS, PT WAS FOUND AT HOME WITH SUPERFICIAL CUTS TO FOREARMS. PT IN HAND CUFFS AND RESTRAINTS APPLIED BY [facility] LATHE SET UP PERSON. Source: police, EMS (KATYA MELENDEZ DO) History of Present Illness Date Seen by Provider: Jan 21, 2021 Time Seen by Provider: 22:15 Initial Comments 35-year-old male presents in police custody with EMS with complaint of suicide attempt. Patient found with a knife with blood on it and superficial cuts to both forearms. Police found drug paraphernalia and methamphetamine and told patient what they found at that time he went a little crazy on them and became combative. Patient was given 100 mg ketamine after before police were able to put patient in restraints and then he calmed down rather quickly. Patient unable to answer questions on arrival, but awake with normal vital signs, IV access. (KATYA MELENDEZ DO) Allergies and Home Medications Allergies Coded Allergies: aripiprazole (Verified Allergy, Unknown, 03/29/20) Patient Home Medication List Home Medication List Reviewed: Yes (BRANDON MELENDEZEN Dino RIVERA) Review of Systems unable to obtain due to altered mental status (BRANDON MELENDEZEN Dino RIVERA) Constitutional: see HPI (GRIFFIN HALLMAN DO) Past Uyyhbbf-Kgwujd-Bnbpur Hx Past Med/Social Hx: Reviewed Nursing Past Med/Soc Hx (KATYA MELENDEZ DO) Patient Social History Type Used: Cigarettes Recent Infectious Disease Expo: No Recent Hopitalizations: No (BRANDON MELENDEZEN Dino RIVERA) Seasonal Allergies Seasonal Allergies: No (KIERANSTINEKATYA L DO) Past Medical History Surgeries: Yes (gastric bypass) Respiratory: No Cardiac: No Neurological: No Genitourinary: No Gastrointestinal: No Musculoskeletal: No Endocrine: No HEENT: No Cancer: No Psychosocial: Yes Anxiety, Depression Integumentary: No Blood Disorders: No (KIERANSTSOPHIEKATYA L DO) Physical Exam Vital Signs - First Documented 01/21/21 01/22/21 22:10 08:29 Temp 36.2 Pulse 104 Resp 20 B/P (MAP) 140/68 (92) Pulse Ox 98 O2 Delivery Room Air (HALLMAN,GRIFFIN L DO) Capillary Refill : Less Than 3 Seconds (ROVENSTINE,KATYA L DO) Height, Weight, BMI Height: 6'2.00" Weight: 477lbs. 8.0oz. [id number]; 28.00 BMI Method:Actual General Appearance: other (poor hygiene, appears much older than actual age. awake, intoxicated) Respiratory: chest non-tender, lungs clear, normal breath sounds, no respiratory distress Cardiovascular: regular rate, rhythm, no edema, no JVD Gastrointestinal: non tender, soft Extremities: normal inspection, no pedal edema Behavior/Eye Contact: belligerent, uncooperative (ROVENSTINE,KATYA L DO) Procedures/Interventions Suture Size: 4-0 (ROVENSTINE,KATYA L DO) Progress/Results/Core Measures Results/Orders Lab Results Laboratory Tests Test 01/21/21 07:39 01/21/21 22:14 Range/Units Urine Color DARK YELLOW Urine Clarity CLEAR Urine pH 6.0 5-9 Urine Specific [place] >=1.030 1.016-1.022 Urine Protein TRACE H NEGATIVE Urine Glucose (UA) NEGATIVE NEGATIVE Urine Ketones NEGATIVE NEGATIVE Urine Nitrite NEGATIVE NEGATIVE Urine Bilirubin NEGATIVE NEGATIVE Urine Urobilinogen 1.0 < = 1.0 MG/DL Urine Leukocyte Esterase NEGATIVE NEGATIVE Urine RBC (Auto) NEGATIVE NEGATIVE Urine RBC NONE /HPF Urine WBC 2-5 /HPF Urine Squamous Epithelial Cells 2-5 /HPF Urine Crystals NONE /LPF Urine Bacteria NEGATIVE /HPF Urine Casts NONE /LPF Urine Mucus MODERATE H /LPF Urine Culture Indicated NO Urine Opiates Screen NEGATIVE NEGATIVE Urine Oxycodone Screen NEGATIVE NEGATIVE Urine Methadone Screen NEGATIVE NEGATIVE Urine Propoxyphene Screen NEGATIVE NEGATIVE Urine Barbiturates Screen NEGATIVE NEGATIVE Ur Tricyclic Antidepressants Screen NEGATIVE NEGATIVE Urine Phencyclidine Screen NEGATIVE NEGATIVE Urine Amphetamines Screen POSITIVE H NEGATIVE Urine Methamphetamines Screen POSITIVE H NEGATIVE Urine Benzodiazepines Screen NEGATIVE NEGATIVE Urine Cocaine Screen NEGATIVE NEGATIVE Urine Cannabinoids Screen NEGATIVE NEGATIVE White Blood Count 13.6 H 4.3-11.0 10^3/uL Red Blood Count 4.81 4.35-5.85 10^6/uL Hemoglobin 13.2 L 13.3-17.7 G/DL Hematocrit 41 40-54 % Mean Corpuscular Volume 85 80-99 FL Mean Corpuscular Hemoglobin 27 25-34 PG Mean Corpuscular Hemoglobin Concent 32 32-36 G/DL Red Cell Distribution Width 13.2 10.0-14.5 % Platelet Count 436 H 130-400 10^3/uL Mean Platelet Volume 10.4 7.4-10.4 FL Immature Granulocyte % (Auto) 0 % Neutrophils (%) (Auto) 70 42-75 % Lymphocytes (%) (Auto) 19 12-44 % Monocytes (%) (Auto) 9 0-12 % Eosinophils (%) (Auto) 1 0-10 % Basophils (%) (Auto) 1 0-10 % Neutrophils # (Auto) 9.5 H 1.8-7.8 X 10^3 Lymphocytes # (Auto) 2.6 1.0-4.0 X 10^3 Monocytes # (Auto) 1.2 H 0.0-1.0 X 10^3 Eosinophils # (Auto) 0.1 0.0-0.3 10^3/uL Basophils # (Auto) 0.1 0.0-0.1 10^3/uL Immature Granulocyte # (Auto) 0.1 0.0-0.1 10^3/uL Sodium Level 143 135-145 MMOL/L Potassium Level 3.9 3.6-5.0 MMOL/L Chloride Level 106 98-107 MMOL/L Carbon Dioxide Level 19 L 21-32 MMOL/L Anion Gap 18 H 5-14 MMOL/L Blood Urea Nitrogen 18 7-18 MG/DL Creatinine 0.97 0.60-1.30 MG/DL Estimat Glomerular Filtration Rate > 60 BUN/Creatinine Ratio 19 Glucose Level 120 H 70-105 MG/DL Calcium Level 9.6 8.5-10.1 MG/DL Corrected Calcium 9.2 8.5-10.1 MG/DL Total Bilirubin 1.2 H 0.1-1.0 MG/DL Aspartate Amino Transf (AST/SGOT) 16 5-34 U/L Alanine Aminotransferase (ALT/SGPT) 12 0-55 U/L Alkaline Phosphatase 162 H 40-136 U/L Total Protein 7.9 6.4-8.2 GM/DL Albumin 4.5 3.2-4.5 GM/DL (HALLMAN,GRIFFIN L DO) My Orders Orders - HALLMAN,GRIFFIN L DO Ns Iv 1000 Ml (Sodium Chloride 0.9%) (01/22/21 07:29) (HALLMAN,GRIFFIN L DO) Medications Given in ED (GRIFFIN HALLMAN DO) Vital Signs/I&O 01/22/21 08:29 Temp 36.2 Pulse 98 Resp 20 B/P (MAP) 136/68 (92) Pulse Ox 98 (GRIFFIN HALLMAN DO) Blood Pressure Mean: 92 Progress Progress Note : Progress Note pt given 100mg Ketamine IV by EMS to assist PD with pt combativeness.....successful in calming pt to transport to ER, pt awake and in restraints on arrival. Still with belligerent look and uncooperative attitude. Unable to answer questions. Discussed situation w EMS, PD and Substation Operator Helper officers. Pt given Haldo and Ativan to allow time to rest, get labs and wait for effects of assumed illicit drugs to wear off. Pt monitored 1:1 by nurse and PD on stand-by in Department. (KATYA MELENDEZ DO) Progress Note : Time: 08:16 Progress Note Patient has become much more responsive and is back to baseline. Patient stable and will be discharged into police custody for further management. (GRIFFIN HALLMAN DO) Transfer of Care Time: 07:00 Care transferred to: Dr Hallman (KATYA MELENDEZ DO) Departure Impression Primary Impression: Suicidal ideation Additional Impression: Acute drug intoxication Qualified Codes: F19.929 - Other psychoactive substance use, unspecified with intoxication, unspecified Disposition: 21 DIS/X[address]/LAW ENFORCE Condition: Stable Departure-Patient Inst. Referrals: AMBROSE TORREZ MD (PCP/Family) Primary Care Physician Patient Instructions: Polysubstance Abuse Add. Discharge Instructions: Cleared for Confinement All discharge instructions reviewed with patient and/or family. Voiced understanding. KATYA MELENDEZ DO Jan 21, 2021 22:29 GRIFFIN HALLMAN DO Jan 22, 2021 08:17
[2021-01-21] MEDS ORDERED: LORazepam INJ 2 MG/ML (ATIVAN) VIAL IVP ONE (22:30)
[2021-01-21] MEDS ORDERED: HALOPERIDOL 5 MG/ML (HALDOL) VIAL IM ONE (22:30)
[2021-01-21 22:57] LABS: HEMATOCRIT 41 % (40-54); HEMOGLOBIN 13.2 G/DL (13.3-17.7); MEAN CORPUSCULAR HEMOGLOBIN 27 PG (25-34); MEAN CORPUSCULAR HGB CONC 32 G/DL (32-36); MEAN CORPUSCULAR VOLUME 85 FL (80-99); WHITE BLOOD COUNT 13.6 10^3/uL (4.3-11.0)
[2021-01-21 22:58] LABS: BASOPHILS # (AUTO) 0.1 10^3/uL (0.0-0.1); BASOPHILS % (AUTO) 1 % (0-10); EOSINOPHILS # (AUTO) 0.1 10^3/uL (0.0-0.3); EOSINOPHILS % (AUTO) 1 % (0-10); LYMPHOCYTES # (AUTO) 2.6 X 10^3 (1.0-4.0); LYMPHOCYTES % (AUTO) 19 % (12-44); MEAN PLATELET VOLUME 10.4 FL (7.4-10.4); MONOCYTES # (AUTO) 1.2 X 10^3 (0.0-1.0); MONOCYTES % (AUTO) 9 % (0-12); NEUTROPHILS # (AUTO) 9.5 X 10^3 (1.8-7.8); NEUTROPHILS % (AUTO) 70 % (42-75); PLATELET COUNT 436 10^3/uL (130-400)
[2021-01-21 23:03] LABS: ALKALINE PHOSPHATASE 162 U/L (40-136); BILIRUBIN,TOTAL 1.2 MG/DL (0.1-1.0); BUN/CREATININE RATIO 19; CALCIUM 9.6 MG/DL (8.5-10.1); CARBON DIOXIDE 19 MMOL/L (21-32); CHLORIDE 106 MMOL/L (98-107); CREATININE SERUM 0.97 MG/DL (0.60-1.30); GFR ESTIMATED > 60; GLUCOSE 120 MG/DL (70-105); POTASSIUM 3.9 MMOL/L (3.6-5.0); SODIUM 143 MMOL/L (135-145)
[2021-01-21 23:04] LABS: ALANINE AMINOTRANSFERASE 12 U/L (0-55); ALBUMIN 4.5 GM/DL (3.2-4.5); TOTAL PROTEIN 7.9 GM/DL (6.4-8.2)
[2021-01-22] MEDS ORDERED: NS IV 1000 ML 1,000 ML ONE (06:04)
[2021-01-22] MEDS ORDERED: NS IV 1000 ML 1,000 ML IV SCH ×2 (06:15)
[2021-01-22] MEDS ORDERED: NS IV 1000 ML 1,000 ML IV STA (07:29)
[2021-01-22 08:06] LABS: AMPHETAMINE SCREEN, URINE POSITIVE (NEGATIVE)
[2021-01-22 08:07] LABS: BARBITURATE SCREEN URINE NEGATIVE (NEGATIVE); BENZODIAZEPINES SCREEN URINE NEGATIVE (NEGATIVE); BILIRUBIN,URINE NEGATIVE (NEGATIVE); CANNABINOID SCREEN, URINE NEGATIVE (NEGATIVE); CLARITY,URINE CLEAR; COCAINE SCREEN URINE NEGATIVE (NEGATIVE); COLOR,URINE DARK YELLOW; GLUCOSE, URINE (UA) NEGATIVE (NEGATIVE); KETONES,URINE NEGATIVE (NEGATIVE); METHADONE STAT NEGATIVE (NEGATIVE); METHAMPHETAMINE SCREEN URINE S POSITIVE (NEGATIVE); NITRITE,URINE NEGATIVE (NEGATIVE); OPIATE SCREEN URINE NEGATIVE (NEGATIVE); OXYCODONE STAT NEGATIVE (NEGATIVE); PROPOXYPHENE STAT NEGATIVE (NEGATIVE); PROTEIN,URINE TRACE (NEGATIVE); TRICYCLIC ANTIDEPRESSANTS SCRE NEGATIVE (NEGATIVE)
[2021-01-22 08:08] LABS: BACTERIA,URINE NEGATIVE /HPF; LEUKOCYTE ESTERASE ,URINE NEGATIVE (NEGATIVE)
[2021-01-22 08:29] VITALS: BP 136/68
== END 2021-01-22 08:27 ==
LOC: EDUNIT# 22:08 → ER FS 22:09
DX: R45.851 Suicidal ideations (principal); F15.129 Other stimulant abuse with intoxication, unspecified; Z88.8 Allergy status to other drugs, medicaments and biological substances
CPT/HCPCS: 36415; 80053; 80306; 81000; 85025

== ENCOUNTER 2021-05-15 23:13 | Emergency (ER) | payer MEDICAID, OTHER ==
[~2021-05-15] VITALS: Ht 190.5 cm; Wt 106.7 kg
--- OUTSIDE RECORDS SUMMARY | 2021-05-15 23:20 | XMS REPORT | Clinical Summary ---
Author Author [facility] Organization [facility] Address Unknown Phone Unavailable Care Team Providers Care Country Sales Manager Name Role Phone Danny Sprague MD Unavailable Rosario Arenas APRN-FISH BAILER Unavailable [phone] Mychart, Generic Provider Unavailable Unavailable Ina Abbott MD Unavailable Source Comments Some departments are not documenting in the electronic medical record. If you d o not see the information that you expected, contact Release of Information in [facility] Information Management department at [phone] for further assistan ce in locating additional records.[facility] Allergies Comments Active Allergy Reactions Severity Noted Date Aripiprazole SWOLLEN 05/26/2014 TONGUE Medications End Date Status Medication Sig Dispensed Refills Start Date Active albuterol (VENTOLIN HFA, Inhale 2 1 Inhaler 1 0 PROAIR HFA) 90 Puffs by 5 mcg/actuation mouth every 6 inhalerIndications: URI hours as (upper respiratory needed for infection) Wheezing. Active cetirizine (ZYRTEC) 10 mg Take 1 Tab by 90 Tab 3 tabletIndications: URI mouth daily. 5 (upper respiratory infection) Active fluticasone (FLONASE) 50 Apply 2 3 Inhaler 3 0 mcg/actuation nasal Sprays to 5 sprayIndications: URI each nostril (upper respiratory as directed infection) daily. Active levothyroxine (SYNTHROID) Take 1 Tab by 30 Tab 3 88 mcg tabletIndications: mouth daily. 5 Other specified hypothyroidism Active doxycycline (ADOXA) 100 Take 1 Tab by 20 Tab 0 mg tabletIndications: mouth twice 5 Cellulitis of toe of left daily. foot Active guanfacine ER(+) (INTUNIV Take 1 Tab by 90 Tab 3 ER) 3 mg mouth daily. 6 tabletIndications: Attention deficit hyperactivity disorder (ADHD), predominantly inattentive type Active melatonin 10 mg Take 1 Tab by 30 Tab 6 12/10/19 1 TbERIndications: Primary mouth at 6 insomnia bedtime daily. Active Problems Problem Noted Date Ingrown toenail 07/24/2013 Medical History Medical History Date Comments Hypoactive thyroid Allergy Hypertension Ulcer Family History Medical History Relation Name Comments Drug Abuse Father Relation Name Status Comments Father Social History Date Tobacco Use Types Packs/Day Years Used Current Every Day Smoker Cigarettes 0.5 Tobacco Cessation: Ready to Quit: No; Co unseling Given: No Comments: not ready to quit Comments Alcohol Use Standard Drinks/Week No 0 (1 standard drink = 0.6 o z pure alcohol) Sex Assigned at Date Recorded Not on file Last Filed Vital Signs Reading Time Taken Comments Vital Sign 168/86 12/10/2015 9:25 AM CDT Blood Pressure 90 12/10/2015 9:25 AM CDT Pulse 36.8 C (98.3 F) 12/10/2015 9:25 AM CDT Temperature 16 12/10/2015 9:25 AM CDT Respiratory Rate 97% 12/10/2015 9:25 AM CDT Oxygen Saturation - - Inhaled Oxygen Concentration 184 kg (405 lb 11.2 oz) 12/10/2015 9:25 AM CDT Weight 189.9 cm (6' 2.75") 12/10/2015 9:25 AM CDT Height 51.05 12/10/2015 9:25 AM CDT Body Mass Index Plan of Treatment Health Maintenance Due Date Last Done Comments HPV VACCINES (1 - Male 2008 2-dose series) HIV SCREENING 2012 DTAP/TDAP VACCINES (1 - 12/18/2015 Tdap) HEPATITIS C SCREENING 12/18/2015 PHYSICAL (COMPREHENSIVE) 05/04/2016 05/04/2015 EXAM INFLUENZA VACCINE 03/14/2021 Results Not on filefrom Last 3 Months Advance Directives 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
[2021-05-15 23:39] LABS: BASOPHILS # (AUTO) 0.1 10^3/uL (0.0-0.1); BASOPHILS % (AUTO) 1 % (0-10); EOSINOPHILS # (AUTO) 0.2 10^3/uL (0.0-0.3); EOSINOPHILS % (AUTO) 2 % (0-10); HEMATOCRIT 32 % (40-54); LYMPHOCYTES # (AUTO) 1.8 X 10^3 (1.0-4.0); LYMPHOCYTES % (AUTO) 16 % (12-44); MEAN CORPUSCULAR HEMOGLOBIN 25 pg (25-34); MEAN CORPUSCULAR HGB CONC 32 g/dL (32-36); MEAN CORPUSCULAR VOLUME 79 fL (80-99); MEAN PLATELET VOLUME 10.7 fL (9.0-12.2); MONOCYTES # (AUTO) 0.9 X 10^3 (0.0-1.0); MONOCYTES % (AUTO) 8 % (0-12); NEUTROPHILS # (AUTO) 8.4 X 10^3 (1.8-7.8); NEUTROPHILS % (AUTO) 74 % (42-75); PLATELET COUNT 345 10^3/uL (130-400); WHITE BLOOD COUNT 11.4 10^3/uL (4.3-11.0)
[2021-05-15] MEDS ORDERED: LIDOCAINE 1% INJ 20 ML 20 ML VIAL ONE (23:39)
--- NOTE | 2021-05-15 23:39 | ED Psychosocial ---
General Stated Complaint: MENTAL SCREEN Source: patient Exam Limitations: no limitations (HAFSA COLLAZO MD) History of Present Illness Date Seen by Provider: May 15, 2021 Time Seen by Provider: 23:20 Initial Comments 25-year-old male with past medical history of depression, prior self-harm, meth amphetamine use coming in after attempted suicide. He took a straight razor blade and for hours attempted to cut deep on both forearms and and attempt to end his life. When asked about this, he says life is very hard and he did not want to talk about it much further. He says he has attempted cutting in the past. Tetanus updated within the past 5 years. Denies feeling lightheaded, chest pain, shortness of breath, or any other concerns. (HAFSA COLLAZO MD) Allergies and Home Medications Allergies Coded Allergies: aripiprazole (Verified Allergy, Unknown, 03/29/20) Patient Home Medication List Home Medication List Reviewed: Yes (HAFSA COLLAZO MD) Cephalexin (Cephalexin) 500 Mg Capsule, 500 MG PO QID Prescribed by: CORTEZ CERVANTES on 05/16/211930 Review of Systems Constitutional: No chills, No fever EENTM: No blurred vision Respiratory: No cough, No short of breath Cardiovascular: no symptoms reported Gastrointestinal: no symptoms reported Genitourinary: no symptoms reported Musculoskeletal: no symptoms reported Skin: see HPI Psychiatric/Neurological: Depressed, Other (suicidal) (HAFSA COLLAZO MD) All Other Systems Reviewed Negative Unless Noted: Yes (HAFSA COLLAZO MD) Past Mablypw-Frhebx-[id number] Hx Patient Social History Substance use?: Yes Substance type: Amphetamines (HAFSA COLLAZO MD) Seasonal Allergies Seasonal Allergies: No (HAFSA COLLAZO MD) Past Medical History Surgeries: Yes (gastric bypass) Respiratory: No Cardiac: No Neurological: No Genitourinary: No Gastrointestinal: No Musculoskeletal: No Endocrine: No HEENT: No Cancer: No Psychosocial: Yes Anxiety, Depression Integumentary: No Blood Disorders: No (HAFSA COLLAZO MD) Physical Exam Vital Signs - First Documented 05/15/21 05/16/21 23:21 00:30 Temp 37.0 Pulse 102 Resp 14 B/P (MAP) 120/67 (84) Pulse Ox 98 O2 Delivery Room Air (CORTEZ CERVANTES MD) Capillary Refill : (HAFSA COLLAZO MD) Height, Weight, BMI Height: 6'2.00" Weight: 477lbs. 8.0oz. [id number]; 28.00 BMI Method:Actual General Appearance: WD/WN, no apparent distress HEENT: PERRL/EOMI, normal ENT inspection, pharynx normal Neck: non-tender, full range of motion, supple Respiratory: chest non-tender, lungs clear, normal breath sounds, no respiratory distress, no accessory muscle use Cardiovascular: normal peripheral pulses, regular rate, rhythm, no edema Gastrointestinal: normal bowel sounds, non tender, soft; No distended, No guarding Extremities: normal range of motion, non-tender, normal inspection, no pedal edema, no calf tenderness Neurologic/Psychiatric: no motor/sensory deficits, alert, normal mood/affect, o riented x 3 Behavior/Eye Contact: decreased rate of speech Thoughts/Hallucinations: no apparent hallucination Skin: normal color, warm/dry, other (Numerous lacerations to bilateral forearms that are all at least 5 cm in length with a few of them being a couple centimeters in depth) Lymphatic: no adenopathy (HAFSA COLLAZO MD) Procedures/Interventions Wound Location: Upper Extremities Other Wound Location Bilateral forearms with more than 10 lacerations bilaterally each roughly 6 cm in length or more and 2 cm in depth, no tendons exposed and only got mostly through subcutaneous tissue Wound's Depth, Shape: into muscle Wound Explored: clean Irrigated w/ Saline (ccs): 2000 Betadine Prep?: Yes Anesthesia: 1% Lidocaine Volume Anesthetic (ccs): 18 Wound Debrided: minimal Suture: Ethlion Suture Size: 4-0 Number of Sutures: 40 Sterile Dressing Applied?: Yes Progress Parts of the wound were closed with simple interrupted with other parts closed with running suture (HAFSA COLLAZO MD) Progress/Results/Core Measures Results/Orders Lab Results Laboratory Tests Test 05/15/21 23:32 05/15/21 23:45 05/16/21 05:00 Range/Units White Blood Count 11.4 H 4.3-11.0 10^3/uL Red Blood Count 4.03 L 4.30-5.52 10^6/uL Hemoglobin 10.0 L 13.3-17.7 g/dL Hematocrit 32 L 40-54 % Mean Corpuscular Volume 79 L 80-99 fL Mean Corpuscular Hemoglobin 25 25-34 pg Mean Corpuscular Hemoglobin Concent 32 32-36 g/dL Red Cell Distribution Width 14.0 10.0-14.5 % Platelet Count 345 130-400 10^3/uL Mean Platelet Volume 10.7 9.0-12.2 fL Immature Granulocyte % (Auto) 0 % Neutrophils (%) (Auto) 74 42-75 % Lymphocytes (%) (Auto) 16 12-44 % Monocytes (%) (Auto) 8 0-12 % Eosinophils (%) (Auto) 2 0-10 % Basophils (%) (Auto) 1 0-10 % Neutrophils # (Auto) 8.4 H 1.8-7.8 X 10^3 Lymphocytes # (Auto) 1.8 1.0-4.0 X 10^3 Monocytes # (Auto) 0.9 0.0-1.0 X 10^3 Eosinophils # (Auto) 0.2 0.0-0.3 10^3/uL Basophils # (Auto) 0.1 0.0-0.1 10^3/uL Immature Granulocyte # (Auto) 0.0 0.0-0.1 10^3/uL Sodium Level 142 135-145 MMOL/L Potassium Level 4.1 3.6-5.0 MMOL/L Chloride Level 106 98-107 MMOL/L Carbon Dioxide Level 23 21-32 MMOL/L Anion Gap 13 5-14 MMOL/L Blood Urea Nitrogen 19 H 7-18 MG/DL Creatinine 0.85 0.60-1.30 MG/DL Estimat Glomerular Filtration Rate 112 BUN/Creatinine Ratio 22 Glucose Level 93 70-105 MG/DL Calcium Level 9.2 8.5-10.1 MG/DL Corrected Calcium 8.8 8.5-10.1 MG/DL Total Bilirubin 0.4 0.1-1.0 MG/DL Aspartate Amino Transf (AST/SGOT) 14 5-34 U/L Alanine Aminotransferase (ALT/SGPT) 11 0-55 U/L Alkaline Phosphatase 164 H 40-136 U/L Total Protein 7.4 6.4-8.2 GM/DL Albumin 4.5 3.2-4.5 GM/DL Salicylates Level < 0.3 L 5.0-20.0 MG/DL Acetaminophen Level < 10 L 10-30 UG/ML Serum Alcohol < 10 <10 MG/DL SARS-CoV-2 RNA (RT-PCR) Not Detected Not Detecte Urine Color YELLOW Urine Clarity CLEAR Urine pH 5.5 5-9 Urine Specific [place] 1.010 L 1.016-1.022 Urine Protein NEGATIVE NEGATIVE Urine Glucose (UA) NEGATIVE NEGATIVE Urine Ketones NEGATIVE NEGATIVE Urine Nitrite NEGATIVE NEGATIVE Urine Bilirubin NEGATIVE NEGATIVE Urine Urobilinogen 0.2 < = 1.0 MG/DL Urine Leukocyte Esterase NEGATIVE NEGATIVE Urine RBC (Auto) NEGATIVE NEGATIVE Urine RBC 5-10 H /HPF Urine WBC NONE /HPF Urine Squamous Epithelial Cells 2-5 /HPF Urine Crystals NONE /LPF Urine Bacteria TRACE /HPF Urine Casts NONE /LPF Urine Mucus MODERATE H /LPF Urine Culture Indicated NO Urine Opiates Screen NEGATIVE NEGATIVE Urine Oxycodone Screen NEGATIVE NEGATIVE Urine Methadone Screen NEGATIVE NEGATIVE Urine Propoxyphene Screen NEGATIVE NEGATIVE Urine Barbiturates Screen NEGATIVE NEGATIVE Ur Tricyclic Antidepressants Screen NEGATIVE NEGATIVE Urine Phencyclidine Screen NEGATIVE NEGATIVE Urine Amphetamines Screen POSITIVE H NEGATIVE Urine Methamphetamines Screen POSITIVE H NEGATIVE Urine Benzodiazepines Screen NEGATIVE NEGATIVE Urine Cocaine Screen NEGATIVE NEGATIVE Urine Cannabinoids Screen NEGATIVE NEGATIVE (CORTEZ CERVANTES MD) My Orders Orders - CORTEZ CERVANTES MD Nicotine Patch (Nicoderm Patch) (05/16/21 15:52) Lorazepam Tablet (Ativan Tablet) (05/16/21 17:14) (CORTEZ CERVANTES MD) Medications Given in ED (CORTEZ CERVANTES MD) Vital Signs/I&O 05/16/21 05/16/21 05/16/21 11:20 11:25 18:21 Temp 36.7 36.7 Pulse 73 73 104 Resp 16 16 16 B/P (MAP) 130/71 130/71 177/71 Pulse Ox 100 100 100 O2 Delivery Room Air Room Air Room Air (CORTEZ CERVANTES MD) Progress Progress Note : Progress Note 25-year-old male with above history coming in after a suicide attempt. ABCs were intact and vitals were stable on presentation. He had extensive lacerations to his forearm which I spent over 2 hours closing with a combination of simple interrupted and running sutures. None of the sutures are absorbable. Afterwards I put on antibiotic ointment and a sterile dressing. Fortunately none of his flexor tendons seem to be involved and he has full use of all digits. Normal radial pulses and capillary refill distally. Specific testing of ulnar, radial, and median nerves all normal. It does seem that the lacerations fortunately are superficial. His tetanus is updated. Some of the wounds are older and were unable to be closed. They are hemostatic however. He was given Keflex here 500 mg. I recommend he takes this 4 times a day for the next week. I also recommend his sutures come out in the next 7 days. Hemoglobin is 10 and otherwise labs are unremarkable. Clinically he is cleared for psychiatric evaluation and discharge from the emergency department. Update 0400: since the patient's UDS showed amphetamines he will not be able to be screened by mental health professional until minimum 12 hours after his arrival which is 1100am. (HAFSA COLLAZO MD) Progress Note #1: Time: 07:00 Progress Note I assumed care of patient from Dr. Collazo at shift change. Per [facility] screener, the patient will have to wait until 11 am to be screened as he had Methamphetamines on his UDS. The screener had told the staff that the patient would have to wait until 12 hours after arrival in ED before they would screen him for mental health evaluation. Patient remains medically stable and clear. He is resting in room and in no distress. Progress Note #2: Time: 14:48 Progress Note [facility] was contacted shortly after 1100 and requested screening on patient. Pt now reporting that he is not suicidal and wanting to go home. [facility] advised nurse that it would be another 1-2 hours before they would have someone free to screen him. It has now been almost 3 hours but they have not called back. Will try re-contacting them. Pt remains calm and cooperative here. Progress Note #3: Time: 17:09 Progress Note [facility] completed their screen and felt the patient met criteria for admission to inpatient psychiatric unit. Pt is voluntary to go inpatient for treatment. He was requesting to smoke but since we can not let him do that he was given Nicotine patch and 2 mg of Ativan to help him relax. Progress Note #4: Time: 19:21 Progress Note Patient accepted to [facility] in [place] by Dr. Lewis. Will contact [facility] for transport Progress Note #5: Time: 20:50 Progress Note School Based Therapist from [facility] here to transport pt to [facility]. (CORTEZ CERVANTES MD) Initial ECG Impression Date: May 16, 2021 Initial ECG Impression Time: 23:36 Initial ECG Rate: 94 Initial ECG Rhythm: Normal Sinus Comment Narrow QRS, normal axis, no significant ST changes or T wave abnormalities, QTC 416, no terminal R wave seen in aVR (HAFSA COLLAZO MD) Departure Impression Primary Impression: Suicide attempt Additional Impressions: Multiple lacerations Methamphetamine abuse Disposition: 65 XFER TO PSYCH HOSP/UNIT Condition: Stable Transfer Transfer Reason: Exceeds level of care (Psychiatric Inpatient care) Time Spoke to Accepting Phy: 19:21 Transfer Progress Notes [facility] from [place] reviewed his case and spoke with pt. Dr. Lewis accepted in transfer at 1921. Transfer Facility: [facility] in [place] Method of Transfer: Private Vehicle ([facility]) (CORTEZ CERVANTES MD) Departure-Patient Inst. Referrals: AMBROSE TORREZ MD (PCP/Family) Primary Care Physician Scripts Cephalexin (Cephalexin) 500 Mg Capsule 500 MG PO QID for Arm Lacerations for 7 Days, #28 CAP 0 Refills Prov: CORTEZ CERVANTES MD 05/16/21 HAFSA COLLAZO MD May 15, 2021 23:39 CORTEZ CERVANTES MD May 16, 2021 07:15
[2021-05-15] MEDS ORDERED: LIDOCAINE 1% INJ 20 ML 20 ML VIAL INJ ONE (23:45)
[2021-05-15 23:58] LABS: ALANINE AMINOTRANSFERASE 11 U/L (0-55); ALBUMIN 4.5 GM/DL (3.2-4.5); ALKALINE PHOSPHATASE 164 U/L (40-136); BILIRUBIN,TOTAL 0.4 MG/DL (0.1-1.0); BUN/CREATININE RATIO 22; CALCIUM 9.2 MG/DL (8.5-10.1); CARBON DIOXIDE 23 MMOL/L (21-32); CHLORIDE 106 MMOL/L (98-107); CREATININE SERUM 0.85 MG/DL (0.60-1.30); GFR ESTIMATED 112; GLUCOSE 93 MG/DL (70-105); POTASSIUM 4.1 MMOL/L (3.6-5.0); SODIUM 142 MMOL/L (135-145); TOTAL PROTEIN 7.4 GM/DL (6.4-8.2)
[2021-05-15 23:59] LABS: ACETAMINOPHEN < 10 UG/ML (10-30); SALICYLATE < 0.3 MG/DL (5.0-20.0)
[2021-05-16] MEDS ORDERED: CEPHALEXIN 250 MG (KEFLEX) CAP PO ONE (01:45)
[2021-05-16 05:19] LABS: BACTERIA,URINE TRACE /HPF; BILIRUBIN,URINE NEGATIVE (NEGATIVE); CLARITY,URINE CLEAR; COLOR,URINE YELLOW; GLUCOSE, URINE (UA) NEGATIVE (NEGATIVE); KETONES,URINE NEGATIVE (NEGATIVE); LEUKOCYTE ESTERASE ,URINE NEGATIVE (NEGATIVE); NITRITE,URINE NEGATIVE (NEGATIVE); PH,URINE 5.5 (5-9); PROTEIN,URINE NEGATIVE (NEGATIVE)
[2021-05-16 05:23] LABS: AMPHETAMINE SCREEN, URINE POSITIVE (NEGATIVE); BARBITURATE SCREEN URINE NEGATIVE (NEGATIVE); BENZODIAZEPINES SCREEN URINE NEGATIVE (NEGATIVE); CANNABINOID SCREEN, URINE NEGATIVE (NEGATIVE); COCAINE SCREEN URINE NEGATIVE (NEGATIVE); METHADONE STAT NEGATIVE (NEGATIVE); METHAMPHETAMINE SCREEN URINE S POSITIVE (NEGATIVE); OPIATE SCREEN URINE NEGATIVE (NEGATIVE); OXYCODONE STAT NEGATIVE (NEGATIVE); PROPOXYPHENE STAT NEGATIVE (NEGATIVE); TRICYCLIC ANTIDEPRESSANTS SCRE NEGATIVE (NEGATIVE)
[2021-05-16] MEDS: CEPHALEXIN 250 MG (KEFLEX) CAP PO SCH ×3 (11:00→17:24)
[2021-05-16] MEDS ORDERED: NICOTINE 21 MG (NICODERM) PATCH TD STA (15:52)
[2021-05-16] MEDS ORDERED: LORazepam 0.5 MG (ATIVAN) TABLET PO STA (17:14)
[2021-05-16] MEDS ORDERED: CEPH500C PO (19:31)
[2021-05-16 21:08] VITALS: BP 177/100
== END 2021-05-16 21:11 ==
LOC: EDUNIT# 23:13 → ER FS 23:17
DX: S51.812A Laceration without foreign body of left forearm, initial encounter (principal); S51.811A Laceration without foreign body of right forearm, initial encounter; F15.10 Other stimulant abuse, uncomplicated; Z20.822 Contact with and (suspected) exposure to COVID-19; X78.9XXA Intentional self-harm by unspecified sharp object, initial encounter
CPT/HCPCS: 36415; 80053; 80306; 80320; 80329; 81000; 85025; 87636; 93005